=== PATIENT | male | born 1980 | race Caucasian/White ===

== ENCOUNTER 2024-02-19 18:03 | Emergency (ER) | payer SELFPAY ==
[~2024-02-19] VITALS: Ht 167.6 cm; Wt 108.9 kg
== END 2024-02-19 21:13 | disposition left against medical advice (07) ==
LOC: ER 18:03
DX: R68.84 Jaw pain (principal); Z53.29 Procedure and treatment not carried out because of patient's decision for other reasons
CPT/HCPCS: 99282